=== PATIENT | female | born 1970 | race Caucasian/White ===

== ENCOUNTER 2018-03-28 08:41 | Day surgery (SDC) | payer OTHER ==
--- NOTE | 2018-03-28 09:46 | CP.SDSHP ---
Same Day Surgery H & P - History Proposed Procedure: EGD Pre-Op Diagnosis: SEE NOTES - Previous Medical/Surgical History Pulmonary: Asthma Misc: Other Pain: 4.Moderate Pain - Allergies Allergies: Allergies No Known Allergies Allergy (Verified 03/28/18 08:53) - Physical Exam General Appearance: N Vital Signs: Vital Signs 03/28/18 09:03 Temperature 97.8 F Pulse Rate 74 Respiratory 20 Rate Blood Pressure 119/69 O2 Sat by Pulse 100 Oximetry Mental Status: Alert & Oriented x3 Neuro: WNL Heart: WNL Lungs: Other GI: Other - {Optional Preform as Required} Breast: WNL Abdomen: Other Rectal: Other Integument: WNL : WNL Ortho: WNL ENT: WNL - Impression Pt. Evaluated Today:Candidate for Anesthesia & Procedure: Yes - Date & Time Time: 09:46 Short Stay Discharge - Short Stay Discharge Admitting Diagnosis/Reason for Visit: DYSPEPSIA, DYSPHAGIA Disposition: HOME/ ROUTINE
[2018-03-28] MEDS ORDERED: Propofol 10 mg/ml Inj (20 ML) ONE (09:52)
[2018-03-28] MEDS ORDERED: Lactated Ringer's 1,000 ML IV ONE (09:57)
[2018-03-28] MEDS ORDERED: Belladonna-Phenobarbital PO ONE (10:15)
[2018-03-28 10:26] VITALS: TEMP 98.9
[2018-03-28] MEDS ORDERED: Sucralfate 1 gm/10 ml Oral Susp UD PO ONE (10:30)
[2018-03-28 11:03] VITALS: O2SAT 100
[2018-03-28 11:04] VITALS: BP 118/60; PULSE 60; RESP 11
== END 2018-03-28 11:17 | disposition home or self-care (01) ==
LOC: C.ENDO 08:41
PROVIDERS: ATTEND Specialist
DX: K30 Functional dyspepsia (principal); R13.14 Dysphagia, pharyngoesophageal phase; K44.9 Diaphragmatic hernia without obstruction or gangrene
CPT/HCPCS: 43239; 84703; 88305; J2704; J7120